=== PATIENT | female | born 1975 | race Asian ===

== ENCOUNTER 2016-11-04 21:01 | Emergency (ER) | payer SELFPAY ==
[~2016-11-04] VITALS: Ht 172.7 cm; Wt 96.8 kg
[2016-11-04] MEDS ORDERED: ADENOSINE 6 MG/2 ML ONE (21:27)
[2016-11-04] MEDS ORDERED: SODIUM CHLORIDE FLUSH 10ML SYR IVF ONE (22:00)
[2016-11-04] MEDS ORDERED: ADENOSINE 6 MG/2 ML IVPush ONE (22:00)
[2016-11-04 22:39] LABS: HEMOGLOBIN 15.4 g/dL (11.7-16.4)
[2016-11-04 22:49] LABS: BLOOD UREA NITROGEN 12 mg/dL (7-18)
[2016-11-05 00:09] VITALS: BP 155/98
== END 2016-11-05 00:19 | disposition home or self-care (01) ==
LOC: ED 23:59
DX: I47.1 Supraventricular tachycardia (principal)
CPT/HCPCS: 36415; 71010; 80048; 82040; 84436; 84443; 84484; 85025; 93005; 96360